=== PATIENT | female | born 1940 | race Caucasian/White ===

== ENCOUNTER 2018-05-17 19:31 | Observation (INO) | payer OTHER ==
[~2018-05-17] VITALS: Ht 157.5 cm; Wt 57.2 kg
[2018-05-17 19:31] VITALS: BP 186/85
[~2018-05-17 19:31] MED LIST: ACETAMINOPHEN650 M5 PO; ALEVE220 M1 PO; CLONAZEPAM 0.50.5 M1 PO; HYDROCHLOROTHIA25 M1 PO; KLONOPIN0.5 MG; LIPITOR20 MG PO; LOPRESSOR25 PO; MULTI VITAMIN1 EACH PO; NOHOMEMEDICATIONS; NORCO 5-325 TA1 EACH PO; PLAVIX 75 MG TA75 M1 PO; POTASSIUM GLUC500 MG; POTASSIUM99 M1 PO; POTASSIUM99 M2 PO; PROTONIX40 M2 PO; PROTONIX40 MG PO; STOMACH MED; TYLENOL EXTRA500 MG PO
[2018-05-17] MEDS ORDERED: KAPSPARGO SPRIN25 MG PO (19:41)
[2018-05-17 19:53] LABS: ABSOLUTE BASOPHILS 0.1 thou/uL (0.0-0.2); ABSOLUTE EOSINOPHILS 0.1 thou/uL (0.0-0.7); ABSOLUTE MONOCYTES 0.6 thou/uL (0.0-1.2); ABSOLUTE NEUTROPHILS 3.7 thou/uL (1.6-8.1); BASOPHILS 1.1 %; EOSINOPHILS 1.8 %; HEMATOCRIT 41.9 % (37.0-47.0); HEMOGLOBIN 14.4 gm/dL (12.0-15.0); LYMPHOCYTES 39.5 %; MCH 32.5 pg (26.0-34.0); MCHC 34.5 g/dL (28.0-37.0); MCV 94.1 fL (80.0-100.0); MONOCYTES 8.6 %; MPV 8.5 fl. (7.2-11.1); NUCLEATED RBCS 0 /100WBC; PLATELET COUNT* 229 thou/uL (150-400); RBC 4.45 mil/uL (4.20-5.00); RDW-CV 12.9 % (10.5-14.5); WBC 7.5 thou/uL (4.0-11.0)
[2018-05-17 20:02] LABS: PROTIME 10.4 Seconds (9.20-11.50)
[2018-05-17 20:07] LABS: ALBUMIN 4.2 g/dL (3.4-5.0); CALCIUM 9.4 mg/dL (8.5-10.1); CREATININE 1.3 mg/dL (0.6-1.3); POTASSIUM 4.2 mmol/L (3.5-5.1); TOTAL BILIRUBIN 0.6 mg/dL (<0.1-1.0); TOTAL PROTEIN 7.8 g/dL (6.4-8.2)
[2018-05-17 22:48] LABS: URINE BILIRUBIN NEGATIVE (Negative); URINE BLOOD NEGATIVE (Negative); URINE CLARITY CLEAR; URINE COLOR YELLOW; URINE GLUCOSE-RANDOM NEGATIVE (Negative); URINE KETONES NEGATIVE (Negative); URINE LEUKOCYTES-REFLEX NEGATIVE (Negative); URINE NITRITE-REFLEX NEGATIVE (Negative); URINE PROTEIN NEGATIVE (Negative); URINE SPECIFIC GRAVITY 1.015 (1.005-1.030); URINE UROBILINOGEN 0.2 E.U./dl (0.2-1.0)
[2018-05-17 23:06] VITALS: BP 134/56
[2018-05-17 23:30] VITALS: BP 139/47
[2018-05-18 04:25] VITALS: BP 127/76
[2018-05-18 07:25] VITALS: BP 135/55
[2018-05-18] MEDS ORDERED: IMITREX20 MG NASAL (07:32)
[2018-05-18 09:01] VITALS: BP 135/55
[2018-05-18 09:02] VITALS: BP 135/55
--- NOTE | 2018-05-18 10:48 | EKG ---
[place] [address] ELECTROCARDIOGRAM REPORT Name: RAMON MOON Room: [address] M.R.#: [id number] Admission: 05/17/18 Attend Phys: Patrick Ceja Discharge: Date of : 44 Report #: [id number] THIS REPORT FOR: //name// [facility] ED Test Date: 2018-05-17 Test Time: 19:49:28 Pat Name: RAMON MOON Department: Room: [facility] Gender: F Financial Analysis Advisor: Katelynn COUCH : 1940 Requested By: Salima Marshall Order Number: [id number] MD: Kole Ramírez Measurements Intervals [place] Rate: 75 P: MS: QRS: -76 QRSD: 129 T: 92 QT: 449 QTc: 502 Interpretive Statements Atrial fibrillation rate dependent LBBB Prolonged QT interval Compared to ECG 09/09/2013 17:43:25 LEFT BUNDLE BRANCH BLOCK noted Prolonged QT interval now present Sinus rhythm no longer present Electronically Signed On 05-18-2018 10:48:21 CDT by Kole Ramírez [email or web address] <ELECTRONICALLY SIGNED> By: Kole Ramírez MD, FACC 05/18/18 1048 48 48 Kole Ramírez MD, [facility] /EPI
[2018-05-18 11:05] VITALS: BP 135/55
== END 2018-05-18 11:07 | disposition home or self-care (01) ==
LOC: M.ERS 19:31 → M.3W 21:58 → M.TBA-ER 21:58 → M.3W 23:12
PROVIDERS: Emergency Medicine; ADMIT Internal Medicine
DX: G43.819 Other migraine, intractable, without status migrainosus (principal); I16.0 Hypertensive urgency; E04.1 Nontoxic single thyroid nodule; L50.9 Urticaria, unspecified; I48.91 Unspecified atrial fibrillation; I65.09 Occlusion and stenosis of unspecified vertebral artery; E78.00 Pure hypercholesterolemia, unspecified; Z88.0 Allergy status to penicillin; Z88.8 Allergy status to other drugs, medicaments and biological substances; Z86.011 Personal history of benign neoplasm of the brain; Z90.710 Acquired absence of both cervix and uterus; Z95.0 Presence of cardiac pacemaker

== ENCOUNTER → 2018-10-31 | Outpatient (CLI) | payer OTHER ==
[~2018-10-31] MED LIST changes: +IMITREX20 MG NASAL; +KAPSPARGO SPRIN25 MG PO
== END ==
LOC: M.RAD 14:29
DX: R06.02 Shortness of breath (principal); R05 Cough

== ENCOUNTER → 2018-11-27 | Outpatient (CLI) | payer OTHER | LOC: M.CT 11:02 | DX: I48.0 Paroxysmal atrial fibrillation (principal); I10 Essential (primary) hypertension; I44.30 Unspecified atrioventricular block; R05 Cough ==

== ENCOUNTER → 2019-10-23 | Outpatient (CLI) | payer OTHER ==
[2019-10-23 10:33] LABS: CALCIUM 8.8 mg/dL (8.5-10.1); CREATININE 1.6 mg/dL (0.6-1.3); POTASSIUM 4.9 mmol/L (3.5-5.1)
== END ==
LOC: M.CT 10:12
PROVIDERS: ATTEND Psychiatry & Neurology Neuromuscular Medicine
DX: G51.8 Other disorders of facial nerve (principal); I10 Essential (primary) hypertension

== ENCOUNTER → 2019-11-27 | Outpatient (CLI) | payer OTHER ==
[2019-11-27 11:05] LABS: CALCIUM 8.8 mg/dL (8.5-10.1); CREATININE 1.3 mg/dL (0.6-1.3); POTASSIUM 4.6 mmol/L (3.5-5.1)
== END ==
LOC: M.LAB 10:43
PROVIDERS: ATTEND Internal Medicine Cardiovascular Disease
DX: I50.32 Chronic diastolic (congestive) heart failure (principal)

== ENCOUNTER → 2020-02-16 | Outpatient (CLI) | payer OTHER ==
[2020-02-16 09:20] LABS: ABSOLUTE EOSINOPHILS 0.1 thou/uL (0.0-0.7); ABSOLUTE LYMPHOCYTES 1.6 thou/uL (0.8-5.3); ABSOLUTE MONOCYTES 0.4 thou/uL (0.0-1.2); ABSOLUTE NEUTROPHILS 4.3 thou/uL (1.6-8.1); BASOPHILS 0.7 %; EOSINOPHILS 2.1 %; HEMATOCRIT 37.8 % (37.0-47.0); HEMOGLOBIN 12.9 gm/dL (12.0-15.0); LYMPHOCYTES 24.8 %; MCH 33.2 pg (26.0-34.0); MCV 97.5 fL (80.0-100.0); MONOCYTES 6.1 %; MPV 7.9 fl. (7.2-11.1); NUCLEATED RBCS 0 /100WBC; PLATELET COUNT* 198 thou/uL (150-400); POLYS 66.3 %; RBC 3.88 mil/uL (4.20-5.00); RDW-CV 12.6 % (10.5-14.5); WBC 6.5 thou/uL (4.0-11.0)
[2020-02-16 09:31] LABS: ALBUMIN 4.1 g/dL (3.4-5.0); CALCIUM 9.3 mg/dL (8.5-10.1); CREATININE 1.5 mg/dL (0.6-1.3); POTASSIUM 4.5 mmol/L (3.5-5.1); TOTAL BILIRUBIN 0.5 mg/dL (<0.1-1.0); TOTAL PROTEIN 7.1 g/dL (6.4-8.2)
== END ==
LOC: M.LAB 09:02
PROVIDERS: ATTEND Psychiatry & Neurology Neuromuscular Medicine
DX: M79.2 Neuralgia and neuritis, unspecified (principal)